=== PATIENT | female | born 1960 | race Caucasian/White ===

== ENCOUNTER → 2024-09-05 | Outpatient (CLI) | payer MEDICARE, OTHER, SELFPAY ==
[2024-09-05 11:11] LABS: Basophils % (Auto) 1 % (0-2.5); Eosinophils # (Auto) 0.1 Thou/mm3 (0.0-0.5); Eosinophils % (Auto) 1 % (0-10); Hematocrit 44.5 % (36.0-46.0); Hemoglobin 14.6 g/dL (12.0-16.0); Immature Granulocytes % (Auto) 0 % (0-0); Immature Granulocytes Auto 0.01 Thou/mm3 (0.00-0.00); Lymphocytes # (Auto) 2.2 Thou/mm3 (1.0-4.8); Lymphocytes % (Auto) 31 % (10-50); Mean Corpuscular HGB Conc 32.8 g/dl (31.0-37.0); Mean Corpuscular Hemoglobin 29.5 pg (25.0-35.0); Mean Corpuscular Volume 90 fL (80-100); Monocytes # (Auto) 0.5 Thou/mm3 (0.0-0.8); Monocytes % (Auto) 7 % (0-12); Neutrophils # (Auto) 4.3 Thou/mm3 (1.8-7.7); Neutrophils % (Auto) 61 % (37-80); Nucleated Red Blood Cell % 0 /100 WBC (0); Platelet Count 258 Thou/mm3 (140-440); RDW Standard Deviation 44.8 fL (36.4-46.3); Red Blood Count 4.95 Miln/mm3 (4.00-5.20)
[2024-09-05 11:40] LABS: Alanine Aminotransferase 25 U/L (10-49); Albumin, Serum 4.2 gm/dL (3.4-4.8); Albumin/Globulin Ratio 1.9 (1.2-2.2); Alkaline Phosphatase 99 U/L (46-116); Anion Gap 7 (7-16); Aspartate Amino Transferase 16 U/L (0-34); BUN/Creatinine Ratio 30 Ratio (12-20); Bilirubin,Total 0.5 mg/dL (0.3-1.2); Blood Urea Nitrogen 21 mg/dL (9-23); Calcium 9.2 mg/dL (8.3-10.6); Calcium (Corrected) 9.2 mg/dL (8.5-10.1); Carbon Dioxide 28.8 mMol/L (20.0-31.0); Cardiac Risk Estimate 2.6 RATIO (3.7-5.6); Chloride 109 mMol/L (98-107); Cholesterol 141 mg/dL (132-200); Creatinine (Component) 0.7 mg/dL (0.6-1.3); Globulin 2.2 gm/dL (2.3-3.5); Glucose 103 mg/dL (74-106); HDL Cholesterol 55 mg/dL (40-60); LDL Cholesterol,Calculated 73 mg/dL (0-130); Osmolality,Calculated 291 (275-295); Potassium 4.4 mMol/L (3.4-5.1); Sodium 145 mMol/L (136-145); Total Protein 6.4 gm/dL (5.7-8.2); Triglycerides 65 mg/dL (30-150); eGFR > 60 See Note
== END | disposition home or self-care (01) ==
PROVIDERS: PCP Nurse Practitioner Family; Referring Provider Nurse Practitioner Family; Visit Provider Nurse Practitioner Family
DX: Z13.220 Encounter for screening for lipoid disorders (principal)
CPT/HCPCS: 36415; 80053; 80061; 85025

== ENCOUNTER → 2024-09-10 | Outpatient (CLI) | payer MEDICARE, OTHER, SELFPAY ==
--- NOTE | 2024-09-10 09:30 | XR_ITS ---
Examination: CTA chest with intravenous contrast 2-D reconstructions 3-D reconstructions, vascular Date and time of exam: September 10, 2024 0956 hours INDICATIONS: Personal history pulmonary artery emboli, history pulmonary nodules on CT chest September 05, 2023, with mild right hilar adenopathy CTDI: vol (mGy) 26.8 DLP: (mGycm) 473 Technique: Multiple axial sections of the thorax have been obtained. 3 mm slice thickness, from below the hemidiaphragms to above the apices of the lungs. Mediastinal and lung density settings have been obtained. 2-D sagittal and coronal reconstructions. 3-D angiographic renderings, 3-D volume renderings, 3D post processing, vascular maximum intensity projections obtained. Contrast administered is 100 cc Isovue-370 intravenous. Low dose protocols were performed. One or more of the following dose reduction techniques were used; automated exposure control, adjustment of the mA and/or KV according to patient size, use of iterative reconstruction technique. Findings: AP dimension ascending thoracic aorta 2.8 cm Pulmonary artery segments are not enlarged No pulmonary artery emboli No current lymphadenopathy No current pulmonary nodules depicted Moderate vascular congestion No lobar pneumonia No visualized liver or splenic lesion No gallstones There appears to be mild edema surrounding the pancreas Kidneys partially visualized no hydronephrosis IMPRESSION: Negative for thoracic aortic aneurysm dilatation Negative for pulmonary artery emboli Moderate vascular congestion Suspicious for pancreatitis, consider MRCP follow-up
== END | disposition home or self-care (01) ==
LOC: CCTX 09:44
PROVIDERS: PCP Nurse Practitioner Family; Referring Provider Nurse Practitioner Family; Visit Provider Nurse Practitioner Family
DX: R09.89 Other specified symptoms and signs involving the circulatory and respiratory systems (principal); Z86.711 Personal history of pulmonary embolism
CPT/HCPCS: 71275; A4649; Q9967

== ENCOUNTER → 2024-10-07 | Outpatient (CLI) | payer MEDICARE, OTHER, SELFPAY ==
--- NOTE | 2024-10-07 16:38 | XR_ITS ---
MRI abdomen, without contrast. MRCP Date and time of exam: October 07, 2024 1715 hours INDICATIONS: Abdominal pain this week, CT chest abdomen September 10, 2024 pancreatic edema Technique: Multiple axial and coronal images of the abdomen have been obtained with the Siemens 1.5T MRI scanner. Images obtained included T1 weighted transverse images, T2-weighted transverse images, T2-weighted transverse images fat-suppressed, T2 weighted haste fat suppressed transverse images, T1 weighted images, in and out of phase images, T2-weighted coronal images, breath hold, T2 weighted haze coronal images as well as T2 weighted coronal thick slab images, MRCP. Findings: No focal liver lesions Cholelithiasis Gallbladder wall is not thickened Normal common hepatic common bile duct No edema surrounding the pancreas Pancreatic duct is not dilated No hydronephrosis Spleen is not enlarged No ascites IMPRESSION: Cholelithiasis, negative for cholecystitis Normal common hepatic common bile duct Negative for pancreatitis
== END | disposition home or self-care (01) ==
PROVIDERS: PCP Nurse Practitioner Family; Referring Provider Nurse Practitioner Family; Visit Provider Nurse Practitioner Family
DX: K80.20 Calculus of gallbladder without cholecystitis without obstruction (principal)
CPT/HCPCS: S8037; 74181

== ENCOUNTER 2024-12-10 10:50 | Outpatient (AMB) | payer MEDICARE, OTHER, SELFPAY ==
--- NOTE | 2024-12-10 11:07 | GSCOFFNT_ITS ---
Vital Signs - [facility] 12/10/24 11:08 Height 1.73 m Height Method Stated Weight 124.369 kg Weight Measurement Method Standing Scale BMI 41.6 BP 142/85 H Blood Pressure Source Automatic Cuff Blood Pressure Location Right Upper Arm Position Sitting Respiration 18 Pulse 66 Pulse Source Monitor Temp 98.1 F Temp Source Temporal Artery Scan Pulse Oximetry (%) 95 Oxygen Delivery Method Room Air Med/Allergies Allergies & Medications Allergies brompheniramine maleate Allergy (Severe, Verified 12/10/24 11:11) Hallucinations dexbrompheniramine maleate Allergy (Severe, Verified 12/10/24 11:11) Hallucinations fentanyl Allergy (Severe, Verified 12/10/24 11:11) ANAPHYLACTIC formaldehyde Allergy (Severe, Verified 12/10/24 11:11) Hives lanolin Allergy (Severe, Verified 12/10/24 11:11) Hives pseudoephedrine HCl Allergy (Severe, Verified 12/10/24 11:11) Hallucinations pseudoephedrine sulfate Allergy (Severe, Verified 12/10/24 11:11) Hallucinations Sulfa (Sulfonamide Antibiotics) Allergy (Severe, Verified 12/10/24 11:11) Anaphylaxis clindamycin Allergy (Intermediate, Verified 12/10/24 11:11) hives vancomycin Allergy (Intermediate, Verified 12/10/24 11:11) hives beef derived (bovine) Allergy (Mild, Verified 12/10/24 11:11) Nausea/Vomitiing lactase Allergy (Mild, Verified 12/10/24 11:11) Nausea/Vomiting/Diarrhea banana Allergy (Unknown, Verified 12/10/24 11:11) quinine Allergy (Unknown, Verified 12/10/24 11:11) TOPICAL ANTIFUNGALS Allergy (Unknown, Uncoded 12/10/24 11:11) Medication Reconciliation ibuprofen 800 mg tablet 800 mg PO TID PRN pain #30 tabs 12/22/19 [Rx Confirmed 12/10/24] apixaban 5 mg tablet (Eliquis) 5 mg PO BID #60 tabs 09/05/23 [Rx Confirmed 12/10/24] apixaban 5 mg tablet (Eliquis) 10 mg (2 x 5 mg) PO BID #28 tabs 09/05/23 [Rx Confirmed 12/10/24] MA Intake Visit Data Collection New Patient or Established: Established Patient (seen at [facility] within 3 years) Reason for Visit:: GALLSTONES Pain Present Currently: No Pain scale:: 0 Pain Scale Used: Jarrett-Parker/Numerical Spirits Model Required: No PCP or OBGYN visit in last 3 months: Yes Hx Now: No Do You Feel Safe at Home: Yes Authorities Contacted: N/A Smoking Status Smoking Status: Never smoker Immunization / Flu Flu Vaccine in the Last 12 Months: No Flu Vaccine Exclusion Criteria: No Exclusion Criteria Past Medical History Past Medical History CARDIAC: Negative Congestive Heart Failure RESPIRATORY: Negative Chronic Obstructive Pulmonary Disease (COPD) GENITOURINARY: Negative Renal Disease ENDOCRINE: Negative Diabetes Mellitus Type 1 or Diabetes Mellitus Type 2 Social History SMOKING STATUS: Smoking status: Never smoker Travel Risk Travel Hx Recent Travel: No HPI HPI Narrative 64 year old female presenting for evaluation of gallstones. Patient states that the gallstones were an incidental finding. She states that she does not have any symptoms and would not like to have surgery if it is not necessary. Denies RUQ pain, nausea, vomiting. Denies pain after eating meals. ROS Review of Systems Systems Reviewed: All systems reviewed, normal except as documented Objective/Exam General General Appearance: alert, comfortable and cooperative Resp Respiratory exam: Absent respiratory distress Assessment & Plan Diagnosis / Problem List (1) Cholelithiasis: Status: Acute Assessment & Plan: 64 year old female presenting for evaluation of gallstones. The gallstones were an incidental finding and the patient does not have any symptoms. Denies RUQ pain, N/V. Denies pain after eating meals. I explained that surgery is not indicated as the gallstones are asymptomatic and pt is agreeable with this plan. Return precautions discussed in detail Advanced Care Planning Advance care planning discussed with:: patient Office Procedures GNS Level of Care Nursing/Assessment Patient Status: Established Patient Nursing Assessment/Reassesment: Medication Reconciliation, Update PMH in EMR and Vital Signs Coordination of Care: Complex Care and Chronic Disease 1-5, Education Complex Pt/Fam, Consent,records obtained, informed consent, Results/Orders obtained and Staff clarify orders Established Patient Charge Established Patient Point Assignment: 95 Established Patient Point Charge: EP Level 3 (80-115) Patient Portal Questionaires Social History Tobacco History Smoking Status: Never smoker Domestic Abuse History Do You Feel Safe at Home: Yes Review of Systems Report any current symptoms Only answer those that you have currently: Past Medical History Past Medical History Have you ever been diagnosed with any of the following: Cardiology Problems Congestive Heart Failure: No Respiratory Problems Chronic Obstructive Pulmonary Disease (COPD): No Genital/Urinary Problems Renal Disease: No Endocrine Problems Diabetes Mellitus Type 1: No Diabetes Mellitus Type 2: No
[2024-12-10 11:08] VITALS: BP 142/85; PULSE 66; RESP 18; TEMP 36.7; O2SAT 95; BMI 41.6
== END 2024-12-10 11:57 | disposition home or self-care (01) ==
PROVIDERS: PCP Nurse Practitioner Family; Referring Provider Nurse Practitioner Family; Supervising Provider Surgery; Visit Provider Surgery
DX: K80.20 Calculus of gallbladder without cholecystitis without obstruction (principal)
CPT/HCPCS: 99213; G0463

== ENCOUNTER → 2025-02-26 | Outpatient (CLI) | payer MEDICARE, OTHER, SELFPAY ==
--- NOTE | 2025-02-26 12:42 | XR_ITS ---
EXAMINATION: Ankle, right 3 views . Technique: Ankle AP, oblique, lateral 3 views Date and time of exam: February 26, 2025 1319 hours INDICATIONS: Heel pain beginning 6 months ago. FINDINGS: Moderate osteopenia. Bimalleolar soft tissue swelling. 13 mm plantar bony calcaneal spur. No fracture IMPRESSION: 13 mm plantar bony calcaneal spur.
--- NOTE | 2025-02-26 12:42 | XR_ITS ---
Examination: Foot, right, 3 views Technique: AP, oblique, lateral views foot, 3 views Date and time of exam: February 26, 2025 1319 hours INDICATIONS: Heel pain beginning 6 months ago. Findings: Moderate osteopenia. No fracture or dislocation. Soft tissue swelling dorsum of the foot. 13 mm plantar bony calcaneal spur. IMPRESSION: 13 mm plantar bony calcaneal spur.
== END | disposition home or self-care (01) ==
LOC: CDIM 12:32
PROVIDERS: PCP Family Medicine; Referring Provider Nurse Practitioner Family; Visit Provider Nurse Practitioner Family
DX: M77.31 Calcaneal spur, right foot (principal)
CPT/HCPCS: 73610; 73630